=== PATIENT | female | born 1950 | race Hispanic/Latino ===

== ENCOUNTER 2022-04-01 15:24 | Emergency (ER) | payer MEDICARE, OTHER ==
[~2022-04-01] VITALS: Ht 160 cm; Wt 63.0 kg
[~2022-04-01 15:24] MED LIST: ALBUTEROL INH; ASPIRIN81 MG PO; ATORVASTATIN CA20 MG PO; LOSARTAN POTASS25 MG PO; METFORMIN HCL500 MG PO; METOPROLOL TART25 MG PO; NOVOLIN 70100 UNITS/ SQ; OMEGA-31000 MG PO; PLAVIX75 MG PO; VENTOLIN HFA18 GM INH
[2022-04-01] MEDS ORDERED: ALPHA LIPOIC A200 MG (15:51)
[2022-04-01] MEDS ORDERED: CARVEDILOL3.125 MG PO (15:51)
[2022-04-01] MEDS ORDERED: VITAMIN C500 M6 (15:51)
[2022-04-01] MEDS ORDERED: BRILINTA60 MG PO (15:51)
[2022-04-01] MEDS ORDERED: VITAMIN B122500 MCG (15:51)
[2022-04-01] MEDS ORDERED: OFEV150 MG (15:51)
[2022-04-01] MEDS ORDERED: FEROSUL325 MG PO (15:51)
[2022-04-01] MEDS ORDERED: VITAMIN D325 MCG (15:51)
[2022-04-01] MEDS ORDERED: JANUVIA100 MG PO (15:51)
[2022-04-01] MEDS ORDERED: ENTRESTO 24 MG1 EACH (15:51)
[2022-04-01] MEDS ORDERED: OXYBUTYNIN CHLOR5 MG PO (15:51)
[2022-04-01] MEDS ORDERED: PROTONIX40 MG/ML PO (15:51)
== END 2022-04-01 16:20 | disposition left against medical advice (07) ==
LOC: FSED 15:40
DX: E11.621 Type 2 diabetes mellitus with foot ulcer (principal); L97.529 Non-pressure chronic ulcer of other part of left foot with unspecified severity; I25.10 Atherosclerotic heart disease of native coronary artery without angina pectoris